=== PATIENT | male | born 1945 | race Caucasian/White ===

== ENCOUNTER → 2016-10-12 | Outpatient (CLI) | payer BC ==
[~2016-10-12] MED LIST: ASCO500T16 PO; ASPI81TA28 PO; CHOL1CAP57 PO; DOXA-10 PO; GARL400T4 PO; LOSA1TAB38 PO; LZL/125 PO; MCRK20 PO; MECL1TAB42 PO; MULTTAB58 PO; OMEG10007 PO
[2016-10-12 09:55] LABS: AST/SGOT 19 U/L (15-37); BLOOD UREA NITROGEN 22 mg/dl (7-18); BUN/CREATININE RATIO 16.8 (10-20); CARBON DIOXIDE 26 mmol/L (21-32); CHLORIDE 107 mmol/L (98-107); GLUCOSE 89 mg/dl (70-99); POTASSIUM 3.4 mmol/L (3.5-5.1); SODIUM 141 mmol/L (136-145)
[2016-10-12 10:05] LABS: ALB/GLOB RATIO 1.1 (0.9-2); ALKALINE PHOSPHATASE 77 U/L (45-117); ALT/SGPT 31 U/L (12-78)
== END | disposition home or self-care (01) ==
LOC: C.LAB1850 07:44
PROVIDERS: ATTEND Family Medicine
DX: N40.1 Benign prostatic hyperplasia with lower urinary tract symptoms (principal); R97.20 Elevated prostate specific antigen [PSA]; I10 Essential (primary) hypertension

== ENCOUNTER 2020-03-31 22:06 | Inpatient (IN) ==
--- NOTE | 2020-03-31 22:32 | Emergency Department Note ---
History of Present Illness General Chief complaint: Stroke/CVA Symptoms Stated complaint: STROKE LIKE SX Time Seen by Provider: 03/31/20 22:14 Source: patient Mode of arrival: EMS Limitations: no limitations History of Present Illness Provider complaint: CVA symptoms This is a 74-year-old male who has a history of dementia, CVA as well as intracranial hemorrhage. The patient tonight was last known well around 7:30 PM. The states that he complained that his left lateral head was hurting. She states that is the same place that he had had a previous intracranial hemorrhage. The patient then was speaking in an incomprehensible manner following this. She states that she wanted to see if it would get better but it did not therefore she brought him in for evaluation. The patient is unable to provide any information. The states that his baseline is that he has dementia. He normally speaks clearly and tell stories that do not make much sense and sometimes follows commands if he can hear and understand. Today he is not following any commands and does speak words with a slurred fashion but the words do not make any sense. Home Medications Medication Instructions Recorded Confirmed Type doxazosin [Cardura] 8 mg PO QAM 10/16/19 03/31/20 History indapamide 1.25 mg PO QPM 10/16/19 03/31/20 History losartan [Cozaar] 100 mg PO QAM 10/16/19 03/31/20 History potassium chloride [Klor-Con M20] 20 meq PO QPM 10/16/19 03/31/20 History potassium chloride [Klor-Con M20] 40 meq PO QAM 10/16/19 03/31/20 History donepezil 5 mg PO QPM 03/31/20 03/31/20 History finasteride 5 mg PO QAM 03/31/20 03/31/20 History Allergies Allergy/AdvReac Type Severity Reaction Status Date / Time No Known Allergies Allergy Verified 03/31/20 22:47 Past Med/Surg History Medical History (Updated 03/31/20 @ 23:56 by Virgilio Jacob DO) BPH (benign prostatic hyperplasia) Chronic back pain Hearing deficit bilateral Hypertension SAH (subarachnoid hemorrhage) Stroke Urinary tract infection Surgical History History of testicular surgery Hx of colonoscopy with polypectomy Social History Smoking Status: Former smoker Second Hand Exposure: No; Hx Alcohol Use: No Hx Substance Use: No Preferred Language: Yakut Communication Ability: Effective Web Programmer Required: No Beliefs That Will Affect Care: None Current Living Situation: Spouse Feels Safe at Home: Yes Review of Systems Unobtainable due to cognitive status Physical Exam Vital Signs Vital Signs - 24 hr 03/31/20 22:10 03/31/20 22:34 03/31/20 22:45 Temperature 37.0 C Temperature Source Oral Pulse Rate 64 75 74 Pulse Rate [Right Finger] Pulse Rate from SpO2 Sensor 65 73 Respiratory Rate 16 20 17 Respiratory Effort / Characteristics Non-Labored Spontaneous Respiratory Depth Normal Blood Pressure 197/85 H 198/101 H 164/126 H Blood Pressure [Right Arm] Blood Pressure Mean 122 123 131 Blood Pressure Mean [Right Arm] Pulse Oximetry 98 95 97 Oxygen Delivery Method Room Air Room Air Room Air Sepsis Recent Fever Within 48 Hours No Sepsis New/Unexplained Change in Mental Status No Sepsis Action Taken by Nursing No Action Required 03/31/20 23:00 03/31/20 23:01 03/31/20 23:31 Temperature Temperature Source Pulse Rate 83 Pulse Rate [Right Finger] 76 103 H Pulse Rate from SpO2 Sensor 81 Respiratory Rate 16 16 17 Respiratory Effort / Characteristics Respiratory Depth Blood Pressure 159/96 H Blood Pressure [Right Arm] 159/96 H 168/99 H Blood Pressure Mean 129 Blood Pressure Mean [Right Arm] 117 122 Pulse Oximetry 96 97 99 Oxygen Delivery Method Room Air Room Air Room Air Sepsis Recent Fever Within 48 Hours Sepsis New/Unexplained Change in Mental Status Sepsis Action Taken by Nursing 03/31/20 23:43 03/31/20 23:48 Temperature Temperature Source Pulse Rate Pulse Rate [Right Finger] 99 H 103 H Pulse Rate from SpO2 Sensor Respiratory Rate 19 17 Respiratory Effort / Characteristics Respiratory Depth Blood Pressure Blood Pressure [Right Arm] 187/105 H 169/113 H Blood Pressure Mean Blood Pressure Mean [Right Arm] 132 131 Pulse Oximetry 97 Oxygen Delivery Method Room Air Sepsis Recent Fever Within 48 Hours Sepsis New/Unexplained Change in Mental Status Sepsis Action Taken by Nursing CONSTITUTIONAL/VITAL SIGNS: Reviewed / noted above. GENERAL: Non-toxic in appearance. INTEGUMENTARY: Warm, dry, and [place]. HEAD: Normocephalic. EYES: without scleral icterus or trauma. ENT/OROPHARYNX: clear and moist. LYMPHADENOPATHY/NECK: Is supple without lymphadenopathy or meningismus. RESPIRATORY: Lungs clear and equal. CARDIOVASCULAR: Regular rate and rhythm. GI/ABDOMEN: Soft and nontender. No organomegaly or pulsatile mass. No rebound or guarding. Normal bowel sounds. EXTREMITIES: Warm and well perfused. BACK: No CVA tenderness. NEUROLOGICAL: The patient attempts to speak but speaks in a rapid soft manner and the words are slurred and did not make any sense. He does seem to have motor strength in his left upper extremity greater than right and bilateral lower extremity weakness. He follows no commands. He does open his eyes spontaneously. He does not appear to be in any distress PSYCHIATRIC: normal affect. MUSCULOSKELETAL: Normally developed with good muscle tone. TRIAGE NURSING DOCUMENTATION REVIEWED. Course Administered Medications Hydralazine HCl (Hydralazine Hcl 20 Mg/Ml Vial) 10 mg IV Q20M PRN PRN Reason: SBP above 185 or DBP above 110 Last Admin: 03/31/20 23:41 Dose: 10 mg Documented by: [id number] Admin: 03/31/20 22:41 Dose: 10 mg Documented by: [id number] Discontinued Medications Morphine Sulfate (Morphine Sulfate 4 Mg/Ml 1 Ml Carp\Vial) 4 mg IV NOW STA Stop: 03/31/20 23:37 Last Admin: 03/31/20 23:41 Dose: 4 mg Documented by: [id number] Critical Care Time Critical Care Time: Yes Total Critical Care Time: 60 I have personally spent 60 minutes of critical care time in the direct management of this patient. This includes bedside care, interpretation of diagnostic studies, and testing, discussion with consultants, patient, and family members, and other required patient management activities. This 60 minutes is in excess of all separately billable procedures. Medical Decision Making Differential Diagnosis Differential includes acute coronary syndrome, myocardial infarction, CVA, TIA, anemia, infection, pneumonia, UTI, pyelonephritis, poor nutrition, dehydration, electrolyte disturbance,hypoglycemia. Medical Records Attestation: I reviewed the patient's medical records. Home Medications Current Medication List: was personally reviewed by me Laboratory Data Attestation: I reviewed the patient's lab results. Result diagrams: 03/31/20 21:40 03/31/20 21:40 Lab Results 03/31/20 03/31/20 03/31/20 Range/Units 21:40 21:40 21:40 WBC 9.65 (4.8-10.8) K/uL RBC 4.67 L (4.7-6.1) M/uL Hgb 14.1 (14.0-18.0) g/dL Hct 41.9 L (42-52) % MCV 89.7 (80-100) fL MCH 30.2 (25-34) pg MCHC 33.7 (32-36) g/dL RDW Std Deviation 44.3 (36.4-46.3) fL RDW Coeff of Jason 13.6 (11.5-14.5) % Plt Count 256 (130-400) K/uL MPV 10.2 (7.4-10.4) fL Immature Gran % (Auto) 0.1 % Neut % (Auto) 68.6 % Lymph % (Auto) 19.3 % [place] % (Auto) 8.5 % Eos % (Auto) 3.0 % Baso % (Auto) 0.5 % Neut # (Auto) 6.62 H (1.4-6.5) K/uL Lymph # (Auto) 1.86 (1.2-3.4) K/uL [place] # (Auto) 0.82 H (0.11-0.59) K/uL Eos # (Auto) 0.29 (0-0.5) K/uL Baso # (Auto) 0.05 (0-0.2) K/uL Immature Gran # (Auto) 0.01 (0.00-0.02) K/uL PT 10.3 (9.0-12.0) Seconds INR 1.0 (0.9-1.1) APTT 24.2 (21.0-31.0) Seconds PTT Ratio 0.9 Sodium 142 (136-145) mmol/L Potassium 3.3 L (3.5-5.1) mmol/L Chloride 109 H (98-107) mmol/L Carbon Dioxide 27 (21-32) mmol/L Anion Gap 6.0 (3-11) BUN 33 H (7-18) mg/dl Creatinine 1.21 (0.6-1.4) mg/dl Est Cr Clr Drug Dosing 50.3 ml/min Est GFR ( Amer) 67.0 Est GFR (Non-Af Amer) 57.8 BUN/Creatinine Ratio 27.1 H (10-20) Glucose 99 (70-99) mg/dl Calcium 8.9 (8.5-10.1) mg/dl Magnesium 2.0 (1.8-2.4) mg/dl Total Bilirubin 0.4 (0.2-1) mg/dl AST 18 (15-37) U/L ALT 25 (12-78) U/L Alkaline Phosphatase 84 (45-117) U/L Troponin I < 0.015 (0-0.045) ng/ml Total Protein 7.1 (6.4-8.2) gm/dl Albumin 3.6 (3.4-5.0) gm/dl Globulin 3.5 (2.5-4.0) gm/dl Albumin/Globulin Ratio 1.0 (0.9-2) SARS-CoV-2 Ag (Rapid) (Negative) 03/31/20 Range/Units Unknown WBC (4.8-10.8) K/uL RBC (4.7-6.1) M/uL Hgb (14.0-18.0) g/dL Hct (42-52) % MCV (80-100) fL MCH (25-34) pg MCHC (32-36) g/dL RDW Std Deviation (36.4-46.3) fL RDW Coeff of Jason (11.5-14.5) % Plt Count (130-400) K/uL MPV (7.4-10.4) fL Immature Gran % (Auto) % Neut % (Auto) % Lymph % (Auto) % [place] % (Auto) % Eos % (Auto) % Baso % (Auto) % Neut # (Auto) (1.4-6.5) K/uL Lymph # (Auto) (1.2-3.4) K/uL [place] # (Auto) (0.11-0.59) K/uL Eos # (Auto) (0-0.5) K/uL Baso # (Auto) (0-0.2) K/uL Immature Gran # (Auto) (0.00-0.02) K/uL PT (9.0-12.0) Seconds INR (0.9-1.1) APTT (21.0-31.0) Seconds PTT Ratio Sodium (136-145) mmol/L Potassium (3.5-5.1) mmol/L Chloride (98-107) mmol/L Carbon Dioxide (21-32) mmol/L Anion Gap (3-11) BUN (7-18) mg/dl Creatinine (0.6-1.4) mg/dl Est Cr Clr Drug Dosing ml/min Est GFR ( Amer) Est GFR (Non-Af Amer) BUN/Creatinine Ratio (10-20) Glucose (70-99) mg/dl Calcium (8.5-10.1) mg/dl Magnesium (1.8-2.4) mg/dl Total Bilirubin (0.2-1) mg/dl AST (15-37) U/L ALT (12-78) U/L Alkaline Phosphatase (45-117) U/L Troponin I (0-0.045) ng/ml Total Protein (6.4-8.2) gm/dl Albumin (3.4-5.0) gm/dl Globulin (2.5-4.0) gm/dl Albumin/Globulin Ratio (0.9-2) SARS-CoV-2 Ag (Rapid) Negative (Negative) Imaging Data Radiologist's Impression: CT scan of the brain: Per statrad shows a parenchymal hemorrhage centered in the left temporoparietal lobe with surrounding edema. Small amount of surrounding subarachnoid hemorrhage as well. The parenchymal hemorrhage measures at least 7.3 cm. Local mass-effect as well as mass-effect on the left ventricle. Approximately 2 mm of left to right midline shift. Possibly early component of ventricular entrapment. ECG Data Attestation: I personally reviewed and interpreted this ECG as follows: Indication: + weakness Rate (beats per minute): 63 Rhythm: + sinus rhythm ECG ST segments: no ST elevation ECG Findings: no PVCs MDM Narrative Patient presents with a sudden onset of left-sided headache around 7:30 PM tonight followed by incomprehensible speech and not following commands or interacting appropriately, according to the . He does have history of intracranial bleed according to the on the left side. My exam as noted above. Vital signs are stable. The patient CBC was unremarkable. Chemistry panel was unremarkable. Twelve-lead EKG shows a sinus rhythm at a rate of 63. The patient's was told the results of the test. I did recommend transfer to tertiary care where neurosurgeon was available. The patient has [employer] insurance. I spoke with [facility]. I spoke with Dr. Garcia from neurosurgery. He recommended that the best thing that could be done was to manage his blood pressure. They do not have any ICU beds to accept the patient. I talked to Dr. Rodgers from [facility] neurosurgery. After reviewing the test results with him, he advised me they also do not have any neurosurgical beds. He also felt that the patient was not a surgical candidate based on the bleed as well as his age and baseline neurological status. He felt that the patient would require significant life support if neurosurgery was performed if the patient were to deteriorate clinically. I did talk to the patient's about this as well. The patient's did not feel the patient would want any life support such as ventilators or feeding tubes to keep him alive. In conclusion, the patient's condition ultimately does not require neuro surgery but rather medical management with blood pressure control. If his condition were to deteriorate which may happen between days 3 and 5, according to Dr. Rodgers, the patient will just be made comfort care and allowed to . The is in agreement with this plan. The patient does not deteriorate, the patient likely would not improve from his current condition. is aware of this. I did speak with Dr. Waller the on-call hospitalist. She is aware of the situation and will see the patient for further inpatient evaluation and care. Impression & Plan Intracranial hemorrhage Discharge Plan Visit Data Chief Complaint: Stroke/CVA Symptoms Stated Complaint: STROKE LIKE SX ED Provider: Virgilio Jacob Discharge Problem: Intracranial hemorrhage Patient Disposition: Being Evaluated by Hospitalist Forms Stand Alone Forms: My [facility], Virtual Emergency Department, Important Visit Information Prescriptions Prescriptions: No Action finasteride 5 mg tablet 5 mg PO QAM RF: 0 donepezil 5 mg tablet 5 mg PO QPM RF: 0 doxazosin [Cardura] 8 mg tablet 8 mg PO QAM RF: 0 potassium chloride [Klor-Con M20] 20 mEq tablet,ER particles/crystals 40 meq PO QAM RF: 0 potassium chloride [Klor-Con M20] 20 mEq tablet,ER particles/crystals 20 meq PO QPM RF: 0 indapamide 1.25 mg tablet 1.25 mg PO QPM RF: 0 losartan [Cozaar] 100 mg tablet 100 mg PO QAM RF: 0 Referrals Referrals: Marley Ball DO [Primary Care Provider] -
[2020-03-31 22:36] LABS: Basophils # (auto) 0.05 K/uL (0-0.2); Basophils % (auto) 0.5 %; Eosinophils # (auto) 0.29 K/uL (0-0.5); Hematocrit (blood only) 41.9 % (42-52); Hemoglobin 14.1 g/dL (14.0-18.0); Immature Granulocytes # (auto) 0.01 K/uL (0.00-0.02); Immature Granulocytes % (auto) 0.1 %; Lymphocytes # (auto) 1.86 K/uL (1.2-3.4); Lymphocytes % (auto) 19.3 %; Mean Corpuscular Hemoglobin 30.2 pg (25-34); Mean Corpuscular Hgb Conc 33.7 g/dL (32-36); Mean Corpuscular Volume 89.7 fL (80-100); Mean Platelet Volume 10.2 fL (7.4-10.4); Monocytes # (auto) 0.82 K/uL (0.11-0.59); Monocytes % (auto) 8.5 %; Neutrophils # (auto) 6.62 K/uL (1.4-6.5); Neutrophils % (auto) 68.6 %; Platelet Count 256 K/uL (130-400); RDW Coefficient of Variation 13.6 % (11.5-14.5); RDW Standard Deviation 44.3 fL (36.4-46.3); Red Blood Count 4.67 M/uL (4.7-6.1); White Blood Count 9.65 K/uL (4.8-10.8)
[2020-03-31] MEDS: hydrALAZINE HCL 20 MG/ML VIAL IV PRN ×2 (22:41→23:41)
[2020-03-31 22:52] LABS: Alanine Aminotransferase 25 U/L (12-78); Albumin Level 3.6 gm/dl (3.4-5.0); Aspartate Aminotransferase 18 U/L (15-37); BUN Creatinine Ratio 27.1 (10-20); Blood Urea Nitrogen 33 mg/dl (7-18); Calcium 8.9 mg/dl (8.5-10.1); Carbon Dioxide 27 mmol/L (21-32); Chloride 109 mmol/L (98-107); Creatinine Clr Calc Pharmacy 50.3 ml/min; Est GFR (Non-African American) 57.8; Glucose 99 mg/dl (70-99); Potassium 3.3 mmol/L (3.5-5.1); Sodium 142 mmol/L (136-145)
[2020-03-31 22:57] LABS: Alkaline Phosphatase 84 U/L (45-117); Bilirubin,Total 0.4 mg/dl (0.2-1); Globulin 3.5 gm/dl (2.5-4.0); Total Protein 7.1 gm/dl (6.4-8.2); Troponin I < 0.015 ng/ml (0-0.045)
[2020-03-31 23:01] LABS: Partial Thromboplastin Ratio 0.9; Partial Thromboplastin Time 24.2 Seconds (21.0-31.0); Prothrombin Time 10.3 Seconds (9.0-12.0)
[2020-03-31] MEDS ORDERED: MoRPHine SULFATE 4 MG/ML 1 ML CARP\\VIAL IV STA (23:36)
[2020-04-01] MEDS ORDERED: HYDROmorphone INJ 1 MG/ML SYRINGE IV STA (00:24)
[2020-04-01] MEDS ORDERED: LORazepam 1 MG/2 ML VIAL IV STA (00:24)
[2020-04-01] MEDS ORDERED: LORazepam 2 MG/4 ML VIAL ONE (00:27)
[2020-04-01] MEDS ORDERED: HYDROmorphone INJ 1 MG/ML SYRINGE ONE (00:29)
[2020-04-01] MEDS ORDERED: LABETALOL HCL IV 5 MG/ML 20ML IV STA ×2 (01:01→07:35)
[2020-04-01] MEDS ORDERED: LABETALOL HCL IV 5 MG/ML 20ML IV PRN (01:34)
[2020-04-01] MEDS ORDERED: DEXAMETHASONE SOD INJ 10 MG/ML VIAL IV ONE (01:46)
--- NOTE | 2020-04-01 01:48 | History & Physical Report ---
Date of Service April 01, 2020 Assessment & Plan (1) Intracranial hemorrhage: Caveat: History Limited by - AMS/CVA. is present at bedside and provides hx. 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 - parenchymal hemorrhage centered in the left temporoparietal lobe size of 7.3cm with surrounding edema; and small amounts surrounding subarachnoid hemorrhage; local mass-effect; mass effect on left lateral ventricle; approx 2mm of left to right midline shift. - ED provider contacted neurosurgeons at [facility] [place] and [facility] for transfer, there were no available ICU beds and [facility] neurosurgeon noted that this is an inoperable condition with only recommendations for BP management. - at bedside noted that Michael wouldn't want any resuscitation or intubation for cardiac arrest. She wanted to discuss with children prior to any official comfort care measures but agreed to keep Michael comfortable. - He was given Morphine 4mg IV for leg cramps/comfort, and was given Dilaudid 1mg IV and Ativan 1gm IV for comfort/agitation. - Spouse is aware of grave condition with high likelihood this isn't survivable and that could be any moment from herniation. - No official comfort care measures but endorses wanting to keep him as comfortable as possible. - Will aim to control BP to Systolic <140 to help negate further intracranial bleeding , as is only available management for current brain bleed. Will do this with Labetalol 10mg IV q2h and Hydralazine 4mg q2h but expect may need to increase frequency. - Since surrounding edema noted will treat with Dexamethasone 10mg IV. - Palliative consult placed. Suspect plan would be to have family discussion so children are included in decision making per spouse's wishes. - Dilaudid 1mg IV q4h; Ativan 1mg q4H for comfort. - Spouse wishes for Neuro consult and this was placed. - Follow CVA order set protocols such as neuro checks and elevation head of bed. Seizure precautions. - 1:1 as needed. - NPO - Defer for any speech or OT/PT consults at this time. FENGI: NSS @ 100ml/hr, NPO DVT ppx: Contraindication for chemical because of acute bleed; no current mechanical indicated with current grave illness. 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 This was also treated with BP management of Systolic <140. (3) AMS (altered mental status): as above (4) Acute confusion: as above (5) Dementia: noted to have rapidly declining cognitive loss, hold home donepizil. History of Present Illness Chief Complaint: Michael Patrick Primary Care Provider: Marley Ball DO Caveat: History Limited by - AMS/CVA. is present at bedside and provides hx. 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 notes that around 5:30pm tonight patient came out of bathroom and complained of a left sided headache. He then progressed to have mumbled speech and was acting more confused from baseline, wasn't following commands, unintelligable speech. is unaware of any head trauma. He does have a hx of a nonoperable subarachnoid hemorrhage treated at [facility] [place] in October 2019. reports his cognitive function has been declining since and that she has to help Michael with most ADLs. She reports that about one week ago coming to ED b ecause of increased agitation at home. In the ED here, he was found to have parenchymal hemorrhage centered in the left temporoparietal lobe size of 7.3cm with surrounding edema; and small amounts surrounding subarachnoid hemorrhage; local mass-effect; mass effect on left lateral ventricle; approx 2mm of left to right midline shift. ED provider contacted neurosurgeons at [facility] [place] and [facility] for transfer, there were no available ICU beds and [facility] neurosurgeon noted that this is an inoperable condition with only recommendations for BP management. at bedside noted that Michael wouldn't want any resuscitation or intubation for cardiac arrest. She wanted to discuss with children prior to any official comfort care measures but agreed to keep Michael comfortable. He was given Morphine 4mg IV for leg cramps that she noted gives him pain, although he wasn't able to endorse any intelligible speech noting pain. He was trying to get out of bed, not following commands, and was given Dilaudid 1mg IV (as noted he was still in pain s/p Morphine 4mg IV) and Ativan 1gm IV, both which made Michael more comfortable. He also has been getting Hydralazine IV for BP control. is requesting Neurology consult. She is aware of grave condition and most likely un-survivable illness. Allergies Allergy/AdvReac Type Severity Reaction Status Date / Time terazosin [From Hytrin] Allergy Unknown Unknown Verified 04/01/20 00:37 Home Medications Medication Instructions Recorded Confirmed Type doxazosin [Cardura] 8 mg PO QAM 10/16/19 03/31/20 History indapamide 1.25 mg PO QPM 10/16/19 03/31/20 History losartan [Cozaar] 100 mg PO QAM 10/16/19 03/31/20 History potassium chloride [Klor-Con M20] 20 meq PO QPM 10/16/19 03/31/20 History potassium chloride [Klor-Con M20] 40 meq PO QAM 10/16/19 03/31/20 History donepezil 5 mg PO QPM 03/31/20 03/31/20 History finasteride 5 mg PO QAM 03/31/20 03/31/20 History Past Med/Surg History Medical History (Updated 04/01/20 @ 12:10 by JULIAN Martinez) BPH (benign prostatic hyperplasia) Chronic back pain Hearing deficit bilateral Hypertension Palliative care encounter SAH (subarachnoid hemorrhage) Stroke Urinary tract infection Surgical History History of testicular surgery Hx of colonoscopy with polypectomy Social History Smoking Status: Unknown if ever smoked Second Hand Exposure: No; Hx Substance Use: No Preferred Language: Vietnamese Communication Ability: Unable Surgeon Partner Required: No Beliefs That Will Affect Care: None Current Living Situation: Spouse Feels Safe at Home: Declines to Answer Safety Concerns: Feels Safe At This Time Assistive Devices: None Review of Systems Review of Systems: Unobtainable due to cognitive status and Unobtainable due to reduced consciousness otherwise as noted in HPI. Physical Exam Constitutional: WD/WN, vitals as above + ill appearing, + altered mental status and comfortable Caveat: Limited by CVA/AMS Eyes: PERRL, conjunctivae normal, anicteric sclerae ENMT: Nose: no external nose abnormality Mouth: no lip abnormality Neck: trachea midline Respiratory: normal respiratory effort, lungs clear to auscultation Cardiovascular: Rate/Rhythm: regular rhythm and + tachycardic Gastrointestinal (Abdomen): Inspection/Auscultation: + visible herniation (umbilical) Percussion/Palpation: abdomen soft Musculoskeletal: Head/Neck/Chest: normocephalic and head atraumatic Skin: no rashes, warm and dry Neurologic: + confused Speech / Cognition: + abnormal speech does not respond to simtuli or open eyes; does not open eyes but mumbles and tried to get out of bed prior to sedation. Psychiatric: unable to assess Results & Data Results & Data ([facility]) Vital Signs (Past 12 Hours) Vital Signs Temp Pulse Pulse Resp BP BP Pulse Ox 04/01/20 01:31 163/85 H 04/01/20 01:10 153/88 H 04/01/20 01:03 115 H 13 176/91 H 96 04/01/20 00:47 108 H 20 139/91 94 04/01/20 00:20 162/90 H 03/31/20 23:51 106 H 17 181/90 H 97 03/31/20 23:48 103 H 17 169/113 H 97 03/31/20 23:43 99 H 19 187/105 H 03/31/20 23:31 103 H 17 168/99 H 99 03/31/20 23:01 76 16 159/96 H 97 03/31/20 23:00 83 16 159/96 H 96 03/31/20 22:45 74 17 164/126 H 97 03/31/20 22:34 75 20 198/101 H 95 03/31/20 22:10 37.0 C 64 16 197/85 H 98 Laboratory Results Laboratory Results - last 24 hr 03/31/20 03/31/20 03/31/20 21:40 21:40 21:40 WBC 9.65 RBC 4.67 L Hgb 14.1 Hct 41.9 L MCV 89.7 MCH 30.2 MCHC 33.7 RDW Std Deviation 44.3 RDW Coeff of Jason 13.6 Plt Count 256 MPV 10.2 Immature Gran % (Auto) 0.1 Neut % (Auto) 68.6 Lymph % (Auto) 19.3 Laurel % (Auto) 8.5 Eos % (Auto) 3.0 Baso % (Auto) 0.5 Neut # (Auto) 6.62 H Lymph # (Auto) 1.86 Laurel # (Auto) 0.82 H Eos # (Auto) 0.29 Baso # (Auto) 0.05 Immature Gran # (Auto) 0.01 PT 10.3 INR 1.0 APTT 24.2 PTT Ratio 0.9 Sodium 142 Potassium 3.3 L Chloride 109 H Carbon Dioxide 27 Anion Gap 6.0 BUN 33 H Creatinine 1.21 Est Cr Clr Drug Dosing 50.3 Est GFR ( Amer) 67.0 Est GFR (Non-Af Amer) 57.8 BUN/Creatinine Ratio 27.1 H Glucose 99 Calcium 8.9 Magnesium 2.0 Total Bilirubin 0.4 AST 18 ALT 25 Alkaline Phosphatase 84 Troponin I < 0.015 Total Protein 7.1 Albumin 3.6 Globulin 3.5 Albumin/Globulin Ratio 1.0 SARS-CoV-2 Ag (Rapid) 03/31/20 Unknown WBC RBC Hgb Hct MCV MCH MCHC RDW Std Deviation RDW Coeff of Jason Plt Count MPV Immature Gran % (Auto) Neut % (Auto) Lymph % (Auto) Laurel % (Auto) Eos % (Auto) Baso % (Auto) Neut # (Auto) Lymph # (Auto) Laurel # (Auto) Eos # (Auto) Baso # (Auto) Immature Gran # (Auto) PT INR APTT PTT Ratio Sodium Potassium Chloride Carbon Dioxide Anion Gap BUN Creatinine Est Cr Clr Drug Dosing Est GFR ( Amer) Est GFR (Non-Af Amer) BUN/Creatinine Ratio Glucose Calcium Magnesium Total Bilirubin AST ALT Alkaline Phosphatase Troponin I Total Protein Albumin Globulin Albumin/Globulin Ratio SARS-CoV-2 Ag (Rapid) Negative Diagnostic Findings CT Head w/o: parenchymal hemorrhage centered in the left temporoparietal lobe size of 7.3cm with surrounding edema; and small amounts surrounding subarachnoid hemorrhage; local mass-effect; mass effect on left lateral ventricle; approx 2mm of left to right midline shift. Medications Administered Hydralazine HCl (Hydralazine Hcl 20 Mg/Ml Vial) 10 mg IV Q20M PRN PRN Reason: SBP above 185 or DBP above 110 Last Admin: 03/31/20 23:41 Dose: 10 mg Documented by: [id number] Admin: 03/31/20 22:41 Dose: 10 mg Documented by: [id number] Code Status & VTE Plan Code Status DNR/DNI VTE Prophylaxis Plan VTE Prophylaxis will be ordered: No Reason for no VTE drug order: Contraindicated Reason for no VTE mechanical prophylaxis: Treatment not tolerated Supervising Physician Co-Signing Physician Notes Patient seen and examined, chart reviewed, case discussed with Dr. Mckoy and I agree with his assessment and plan Resident Activity Tracking Resident Involvement: Resident Care Provided Care Provided: Adult Hospital Medicine (1) Dementia Dementia behavioral disturbance: with behavioral disturbance Dementia type: unspecified type Qualified Code(s): F03.91 - Unspecified dementia with behavioral disturbance
[2020-04-01] MEDS ORDERED: hydrALAZINE HCL 20 MG/ML VIAL IV PRN ×2 (02:10→02:17)
[2020-04-01] MEDS ORDERED: SODIUM CHLORIDE 0.9% 1000ML 1,000 ML IV SCH (02:10)
[2020-04-01] MEDS ORDERED: HYDROmorphone INJ 1 MG/ML SYRINGE IV PRN (02:10)
[2020-04-01] MEDS ORDERED: PHARMACIST DISCHARGE MED REC CONSULT PRN (02:10)
[2020-04-01] MEDS: POTASSIUM CHLORIDE / WTR 10 MEQ/100 ML PLCT IV SCH ×2 (03:29→04:21)
--- NOTE | 2020-04-01 03:34 | Billing Data ---
Date of Service April 01, 2020 Coding Level of Care Code 65656 Initial Inpt Care Lvl 3
[2020-04-01 07:09] LABS: Basophils # (auto) 0.01 K/uL (0-0.2); Basophils % (auto) 0.1 %; Hematocrit (blood only) 42.6 % (42-52); Hemoglobin 14.9 g/dL (14.0-18.0); Immature Granulocytes # (auto) 0.04 K/uL (0.00-0.02); Immature Granulocytes % (auto) 0.3 %; Lymphocytes # (auto) 0.55 K/uL (1.2-3.4); Lymphocytes % (auto) 3.7 %; Mean Corpuscular Hemoglobin 31.1 pg (25-34); Mean Corpuscular Volume 88.9 fL (80-100); Mean Platelet Volume 9.2 fL (7.4-10.4); Monocytes # (auto) 0.12 K/uL (0.11-0.59); Monocytes % (auto) 0.8 %; Neutrophils # (auto) 14.19 K/uL (1.4-6.5); Neutrophils % (auto) 95.1 %; Platelet Count 259 K/uL (130-400); RDW Coefficient of Variation 13.5 % (11.5-14.5); RDW Standard Deviation 44.1 fL (36.4-46.3); Red Blood Count 4.79 M/uL (4.7-6.1); White Blood Count 14.91 K/uL (4.8-10.8)
--- NOTE | 2020-04-01 07:12 | CT Scan Report ---
CT SCAN OF THE BRAIN WITHOUT IV CONTRAST CLINICAL HISTORY: Strokelike symptoms. COMPARISON STUDY: CT of the brain dated 03/23/2020. TECHNIQUE: Unenhanced axial CT scan of the brain is performed from the vertex to the skull base. A do se lowering technique was utilized adhering to the principles of ALARA. CT DOSE: 614.27 mGy.cm FINDINGS: Brain parenchyma: There is a large hemorrhage centered in the left temporoparietal region. This is be st seen on image #18 and measures approximately 7.5 x 5 cm. There is significant surrounding edema wi th effacement of the overlying cortical sulci and the right lateral ventricle. There is 3 mm of left- to-right midline shift. There is subarachnoid extension along the left-sided cortical sulci. There is also likely extension into the left lateral ventricle. There is also likely trace subdural extension along the left convexity. There are age-related involutional changes noting mild subcortical and pe riventricular microangiopathic change. There is no evidence of acute territorial ischemia by CT crite sameer. Ventricles, sulci, cisterns: Prominent secondary to involutional change. See above. Intracranial vasculature: There is mild atherosclerotic calcification of the cavernous carotid arteri es. Calvarium: Unremarkable. Sinuses and mastoids: The visualized paranasal sinuses are clear. The mastoid air cells are well pneu matized. Orbits: The bony orbits are grossly intact. IMPRESSION: 1. There is a large multicompartmental intracranial hemorrhage centered in the left temporoparietal r egion as above. 2. There is effacement of the overlying cortical sulci and the left lateral ventricle, as well as min imal [id number] midline shift. ACT 112: Negative or not required by law. Electronically signed by: Joseph Albrecht M.D. 04/01/2020 7:11 AM
[2020-04-01] MEDS: LORazepam 1 MG/2 ML VIAL IV PRN ×3 (07:38→17:37)
[2020-04-01 07:42] LABS: BUN Creatinine Ratio 20.5 (10-20); Calcium 8.9 mg/dl (8.5-10.1); Creatinine Clr Calc Pharmacy 48.5 ml/min; Est GFR (African American) 64.4; Est GFR (Non-African American) 55.6; Potassium 3.6 mmol/L (3.5-5.1)
--- NOTE | 2020-04-01 08:06 | Hospitalist Progress Note ---
Date of Service April 01, 2020 Assessment & Plan (1) Intracranial hemorrhage: Patient is a 74 year old male with PMHx subarachnoid hemorrhage, dementia, BPH, HTN that presented to [facility] ED for AMS and stroke like symptoms, found ot have a hemorrhagic stroke of his left temporoparietal lobe 7.3cm x 4.9cm with surrounding edema. COMFORT CARE MEASURES ONLY -Discussion with patients Arianne and their 3 children over the phone today regarding patients poor prognosis. -Family agreeable to comfort measures only at this time and wish to withdraw care and only keep him comfortable. -Will DC all unnecessary tests and treatments. -Palliative Consulted -Tylenol 650mg q6h PRN -Morphine 2mg q2h PRN pain/discomfort -Ativan 1mg q4h PRN agitation -Zofran 4mg q4h PRN nausea -Chlorpromazine 25mg q6h PRN hiccups -Transfer to single room for end of life Dispo: Downgrade Med/Surg Comfort care FEN: DC IVF, food per comfort DVT: Deferred, comfort Code: DNR/DNI Comfort Measures (2) SAH (subarachnoid hemorrhage): (3) AMS (altered mental status): (4) Comfort measures only status: Admission and Anticipated Discharge Date Admission Date: April 01, 2020 Supervising Physician Co-Signing Physician Notes Resident Physician Supervision Note: I independently interviewed and examined the patient and verified the suarez history and physical, reviewed labs and image studies, discussed the case with the resident Dr. Alonso and agree with the findings and care plan. Subjective Patient minimally responsive this AM. Had recently received Ativan and sleeping and snoring loudly. Prognosis poor. Called patient's and 3 children in regards to his situation and prognosis. Family agrees that their only want is for the patient to be comfortable. Arianne and his 3 children wanting to at this time transition patient to comfort measures only. Appreciative of care given. Review of Systems Review of Systems: Unobtainable due to reduced consciousness Physical Exam Constitutional: + altered mental status Respiratory: normal respiratory effort; no respiratory distress Auscultation: lungs clear to auscultation bilaterally Cardiovascular: Rate/Rhythm: + tachycardic Results & Data Results & Data ([facility]) Vital Signs (Past 12 Hours) Vital Signs Temp Pulse Pulse Resp BP BP Pulse Ox 04/01/20 07:00 105 H 04/01/20 06:22 108 H 164/92 H 04/01/20 05:32 98 H 174/93 H 04/01/20 02:48 36.5 C 100 H 20 158/88 H 97 04/01/20 02:10 98 H 19 188/90 H 96 04/01/20 01:31 163/85 H 04/01/20 01:10 153/88 H 04/01/20 01:03 115 H 13 176/91 H 96 04/01/20 00:47 108 H 20 139/91 94 04/01/20 00:20 162/90 H 03/31/20 23:51 106 H 17 181/90 H 97 03/31/20 23:48 103 H 17 169/113 H 97 03/31/20 23:43 99 H 19 187/105 H 03/31/20 23:31 103 H 17 168/99 H 99 03/31/20 23:01 76 16 159/96 H 97 03/31/20 23:00 83 16 159/96 H 96 03/31/20 22:45 74 17 164/126 H 97 03/31/20 22:34 75 20 198/101 H 95 03/31/20 22:10 37.0 C 64 16 197/85 H 98 Resident Activity Tracking Resident Involvement: Resident Care Provided Care Provided: Adult Hospital Medicine
[2020-04-01] MEDS ORDERED: ONDANSETRON 4 MG OD TAB SL PRN (10:29)
[2020-04-01] MEDS ORDERED: chlorproMAZINE HCL 25 MG TAB PO PRN (10:29)
[2020-04-01] MEDS ORDERED: MoRPHine SULFATE 2 MG/ML CARP IV PRN (10:29)
[2020-04-01] MEDS ORDERED: LORazepam 0.5 MG/1 ML VIAL IV PRN (10:29)
[2020-04-01] MEDS ORDERED: LORazepam 0.5 MG TAB PO PRN (10:29)
[2020-04-01] MEDS ORDERED: ATROPINE SULFATE 1% OP SOLN 2 ML BTL SL PRN (10:29)
[2020-04-01] MEDS ORDERED: ONDANSETRON INJ 2 MG/ML 2 ML VIAL IV PRN (10:29)
[2020-04-01] MEDS ORDERED: ACETAMINOPHEN 325 MG TAB PO PRN (10:29)
--- NOTE | 2020-04-01 10:43 | Neurology Consultation ---
Date of Consultation April 01, 2020 Assessment & Plan (1) Intracranial hemorrhage: (2) Dementia: This patient has a large lobar type hemorrhage within the left temporoparietal region with associated subarachnoid hemorrhage and extension into the left lateral ventricle. There is associated cytotoxic edema and a mild degree of left to right midline shift. He has had nontraumatic cerebral hemorrhage in the past and has an associated progressive dementia. He may have cerebral amyloid angiopathy although his recent brain MRIs were not highly suggestive of this diagnosis. Other types of dementia including Alzheimer's disease and frontotemporal dementia have been considered in this patient previously. Please see Dr. Tang's previous evaluation for further details. This patient's prognosis is very poor. Although admission to a tertiary center with neuro critical care and neurosurgical services would be preferred, aggressive treatment has been declined and not recommended by neurosurgery at both [facility] and [facility]. Patient is DNR/DNI. Comfor t measures have been recommended and are appropriate. No further immediate recommendations. Patient's care has been changed to comfort measures only for review of hospitalist progress note this morning. 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 He has exhibited a reduced level of consciousness as well. A CT of the head did reveal a large, 7.5 x 5 cm, multicompartmental intracranial hemorrhage centered in the left temporoparietal region with associated edema and effacement of the overlying cortical sulci and right lateral ventricle. There is 3 mm of left to right midline shift. There is a component of subarachnoid hemorrhage as well as extension into the left lateral ventricle. These findings were observed by the interpreting radiologist. I reviewed the images and agree. The emergency department physician had discussed his case with neurosurgery from both [facility] and [facility]. However, no neuro ICU beds were available at either institution. Furthermore, surgical intervention was not recommended based on bleeding characteristics, patient's age, and underlying neurological status (i.e. 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 The case was discussed with patient's in the emergency department as well. Patient's status is DNR/DNI. He was subsequently admitted to [facility] for supportive medical care including control of blood pressure and comfort measures. The patient's spouse is aware of a high likelihood of which may occur over the next few days due to the severity of his intracranial hemorrhage. Per nursing staff, patient has been agitated and attempting to climb out of bed and remove his Salcedo catheter. He was given lorazepam earlier this morning to address his agitation. He was sedated at the time of my assessment of him this morning. I do see that this patient was evaluated by Dr. Tang this past October and for a follow-up visit in December for dementia and nontraumatic subarachnoid hemorrhage. I did review her clinic notes which indicated progressive cognitive impairment beginning earlier this year with some concern for cerebral amyloid angiopathy, or possible angiitis. Given his history of nontraumatic subarachnoid hemorrhage. Alzheimer's disease and frontotemporal dementia were also considered in the differential. A brain MRI completed this past December had revealed hemosiderin from a prior subarachnoid hemorrhage within the left temporal occipital area as well as changes consistent with chronic cerebrovascular disease. There is generalized atrophy as well. These findings were identified by interpreting radiologist. I reviewed the images and agree. Allergies Allergy/AdvReac Type Severity Reaction Status Date / Time terazosin [From Hytrin] Allergy Unknown Unknown Verified 04/01/20 00:37 Home Medications Medication Instructions Recorded Confirmed Type doxazosin [Cardura] 8 mg PO QAM 10/16/19 03/31/20 History indapamide 1.25 mg PO QPM 10/16/19 03/31/20 History losartan [Cozaar] 100 mg PO QAM 10/16/19 03/31/20 History potassium chloride [Klor-Con M20] 20 meq PO QPM 10/16/19 03/31/20 History potassium chloride [Klor-Con M20] 40 meq PO QAM 10/16/19 03/31/20 History donepezil 5 mg PO QPM 03/31/20 03/31/20 History finasteride 5 mg PO QAM 03/31/20 03/31/20 History Patient History Medical History (Updated 04/01/20 @ 10:40 by Phani Alonso DO) BPH (benign prostatic hyperplasia) Chronic back pain Hearing deficit bilateral Hypertension SAH (subarachnoid hemorrhage) Stroke Urinary tract infection Surgical History History of testicular surgery Hx of colonoscopy with polypectomy Social History Smoking Status: Unknown if ever smoked Second Hand Exposure: No; Hx Substance Use: No Preferred Language: Polish Communication Ability: Effective 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 He is unresponsive to voice, tactile, or noxious stimulation. Testing of higher cognitive/integrative functions such as orientation, memory, concentration, speech, and fund of knowledge cannot be evaluated. Likewise, cranial nerve evaluation is limited. Pupils are equal, round, and minimally reactive to light. There is no ophthalmoplegia or gaze preference. Corneal reflexes intact. Oculocephalic reflex is intact. Sensory examination cannot be completed. Deep tendon reflexes are of modestly increased throughout, a bit more so for the right arm and leg. Plantar responses are equivocal bilaterally. Testing of coordination could not be completed. A funduscopic examination could not be completed due to poor patient cooperation. Carotid pulses intact bilaterally, no bruits to auscultation. Gait and station cannot be tested. Muscle strength cannot be tested. Muscle tone increased, with increased flexor tone for the right upper limb and modestly increased extensor tone for the right lower limb. No atrophy. No tremors or dyskinesias. Does exhibit occasional semipurposeful movements of the hands, grabbing at bed sheets. Results & Data ([facility]) Vital Signs (Past 12 Hours) Vital Signs Temp Pulse Pulse Resp BP BP Pulse Ox 04/01/20 08:08 36.8 C 104 H 17 152/105 H 97 04/01/20 08:00 102 H 131/73 04/01/20 07:00 105 H 04/01/20 06:22 108 H 164/92 H 04/01/20 05:32 98 H 174/93 H 04/01/20 02:48 36.5 C 100 H 20 158/88 H 97 04/01/20 02:10 98 H 19 188/90 H 96 04/01/20 01:31 163/85 H 04/01/20 01:10 153/88 H 04/01/20 01:03 115 H 13 176/91 H 96 04/01/20 00:47 108 H 20 139/91 94 04/01/20 00:20 162/90 H 03/31/20 23:51 106 H 17 181/90 H 97 03/31/20 23:48 103 H 17 169/113 H 97 03/31/20 23:43 99 H 19 187/105 H 03/31/20 23:31 103 H 17 168/99 H 99 03/31/20 23:01 76 16 159/96 H 97 03/31/20 23:00 83 16 159/96 H 96 03/31/20 22:45 74 17 164/126 H 97 03/31/20 22:34 75 20 198/101 H 95 03/31/20 22:10 37.0 C 64 16 197/85 H 98 Laboratory Results WBC 14.91, hemoglobin 14.9, hematocrit 42.6, platelet count 259, sodium 140, potassium 3.6, BUN 26, creatinine 1.25, glucose 146, calcium 8.9, magnesium 2.0, AST 18, ALT 25 Patient did have a lumbar puncture completed on November 08, 2019. CSF results were reviewed. CSF clear, pale yellow, no xanthochromia, WBC 2, RBC 367, glucose 63, protein 149.9, VDRL nonreactive, CSF meningoencephalitis panel negative. CSF Gram stain no organisms, culture no growth, CSF cytology, no malignant cells. Diagnostic Findings A CT angiogram of the head completed this past October was negative for stenosis, occlusion, or aneurysm. A CTA of the neck at that time was unremarkable. A brain MRI completed January 01, 2020 was negative for acute process. Hemoside rin from patient's previous subarachnoid hemorrhage of the left temporal occipital distribution was appreciated. Age-related atrophy and chronic microvascular ischemic disease observed. These findings were appreciated by the interpreting radiologist. I reviewed the images and agree. Coding Level of Care Code 82874 Initial Inpt Care Lvl 3 Diagnoses Intracranial hemorrhage I62.9 Dementia F03.91 Dementia behavioral disturbance: with behavioral disturbance Dementia type: unspecified type (1) Dementia Dementia behavioral disturbance: with behavioral disturbance Dementia type: unspecified type Qualified Code(s): F03.91 - Unspecified dementia with behavioral disturbance
--- NOTE | 2020-04-01 12:14 | Palliative Care Consultation ---
Date of Consultation April 01, 2020 Assessment & Plan (1) Palliative care encounter: This unfortunate gentleman suffered a large lobar type hemorrhage within the left temporoparietal region with associated subarachnoid hemorrhage and extension into the left lateral ventricle. Neurology was consulted and transfer to a tertiary care center would not be recommended. Ultimately, he has a very poor prognosis. Palliative care was consulted to discuss goals of care. The patient was transitioned to comfort measures only after lengthy discussion with pt , Arianne [phone]. Morphine IV, Atropine gtts, and Ativan were ordered. I cleared with Dr. Hogue that Arianne could visit once patient was transferred to a private room. Talked with and advised that we would need her to visit sooner rather than later due to the snowstorm, we would not be able to allow her to stay overnight. Life expectancy hours to a few days. Thank you for allowing us to be involved with this gentleman.We will continue to follow as he progresses through this life transition. (2) Dementia: Dementia behavioral disturbance: with behavioral disturbance Dementia type: unspecified type Qualified Code(s): F03.91 - Unspecified dementia with behavioral disturbance (3) Dementia: (4) SAH (subarachnoid hemorrhage): (5) AMS (altered mental status): History of Present Illness Reason for Consultation: Goals of care Requesting Physician: Dr. Barrera Attending Physician: Ibeth Barrera MD History of Present Illness This unfortunate gentleman suffered a large lobar type hemorrhage within the left temporoparietal region with associated subarachnoid hemorrhage and extension into the left lateral ventricle. Neurology was consulted and transfer to a tertiary care center would not be recommended. Ultimately, he has a very poor prognosis. Palliative care was consulted to discuss goals of care. Please see A/P for further details. Thank you for involving palliative care with this gentleman. Allergies Allergy/AdvReac Type Severity Reaction Status Date / Time terazosin [From Hytrin] Allergy Unknown Unknown Verified 04/01/20 00:37 Home Medications Medication Instructions Recorded Confirmed Type doxazosin [Cardura] 8 mg PO QAM 10/16/19 03/31/20 History indapamide 1.25 mg PO QPM 10/16/19 03/31/20 History losartan [Cozaar] 100 mg PO QAM 10/16/19 03/31/20 History potassium chloride [Klor-Con M20] 20 meq PO QPM 10/16/19 03/31/20 History potassium chloride [Klor-Con M20] 40 meq PO QAM 10/16/19 03/31/20 History donepezil 5 mg PO QPM 03/31/20 03/31/20 History finasteride 5 mg PO QAM 03/31/20 03/31/20 History Patient History Medical History (Updated 04/01/20 @ 12:10 by JULIAN Martinez) BPH (benign prostatic hyperplasia) Chronic back pain Hearing deficit bilateral Hypertension Palliative care encounter SAH (subarachnoid hemorrhage) Stroke Urinary tract infection Surgical History History of testicular surgery Hx of colonoscopy with polypectomy Social History Smoking Status: Unknown if ever smoked Second Hand Exposure: No; Hx Substance Use: No Preferred Language: [place] Communication Ability: Unable Belt Builder Required: No Beliefs That Will Affect Care: None Current Living Situation: Spouse Feels Safe at Home: Declines to Answer Safety Concerns: Feels Safe At This Time Assistive Devices: None Results & Data ([facility]) Vital Signs (Past 12 Hours) Vital Signs Temp Pulse Pulse Resp BP BP Pulse Ox 04/01/20 08:08 36.8 C 104 H 17 152/105 H 97 04/01/20 08:00 102 H 131/73 04/01/20 07:00 105 H 04/01/20 06:22 108 H 164/92 H 04/01/20 05:32 98 H 174/93 H 04/01/20 02:48 36.5 C 100 H 20 158/88 H 97 04/01/20 02:10 98 H 19 188/90 H 96 04/01/20 01:31 163/85 H 04/01/20 01:10 153/88 H 04/01/20 01:03 115 H 13 176/91 H 96 04/01/20 00:47 108 H 20 139/91 94 04/01/20 00:20 162/90 H PG Care Time/CCT Total # of Minutes Spent Total Time Spent with Patient: Total time spent is greater than 50% in coordination of care (as documented) at patient's floor/unit and/or counseling patient: 70 Coding Level of Care Code 32617 Inpt Consult Level 3 Diagnoses Palliative care encounter Z51.5 Dementia F03.91 Dementia behavioral disturbance: with behavioral disturbance Dementia type: unspecified type Dementia F03.90 SAH (subarachnoid hemorrhage) I60.9 AMS (altered mental status) R41.82 Time Spent (min) 70 Time Spent Midlevel Total time spent 70 minutes with > 50% of that time spent assessing the patient, discussing goals of care, symptom management and collaborating with IDT
[2020-04-01] MEDS: MoRPHine SULFATE 2 MG/ML CARP IV PRN (18:26)
--- NOTE | 2020-04-01 22:24 | Electrocardiogram Report ---
Test Reason : Blood Pressure : / mmHG Vent. Rate : 063 BPM Atrial Rate : 063 BPM P-R Int : 194 ms QRS Dur : 114 ms QT Int : 406 ms P-R-T Axes : 055 -40 019 degrees QTc Int : 415 ms Normal sinus rhythm Left axis deviation Incomplete right bundle branch block Abnormal ECG When compared with ECG of 23-MAR-2020 21:08, Premature ventricular complexes are no longer Present Confirmed by Jordan Becerra ([id number]) on 04/01/2020 10:24:09 PM Referred By: REFERRED SELF Confirmed By:Jordan Becerra
[2020-04-02] MEDS: LORazepam 1 MG/2 ML VIAL IV PRN ×2 (01:05→05:32)
--- NOTE | 2020-04-02 07:01 | Hospitalist Progress Note ---
Date of Service April 02, 2020 Assessment & Plan (1) Intracranial hemorrhage: Patient is a 74 year old male with PMHx subarachnoid hemorrhage, dementia, BPH, HTN that presented to [facility] ED for AMS and stroke like symptoms, found ot have a hemorrhagic stroke of his left temporoparietal lobe 7.3cm x 4.9cm with surrounding edema. COMFORT CARE MEASURES ONLY -Discussion with patients Arianne and their 3 children over the phone today regarding patients poor prognosis. -Family agreeable to comfort measures only at this time and wish to withdraw care and only keep him comfortable. -Palliative Consulted -Tylenol 650mg q6h PRN -Morphine 2mg q1h PRN pain/discomfort -Ativan 1mg q4h PRN agitation -Zofran 4mg q4h PRN nausea -Chlorpromazine 25mg q6h PRN hiccups -Discussed with in regards to outpatient end of life care at [facility] assisted [facility]. -Will hold off on any transfers at this time, patients Arianne still deciding what she would want next, currently only wants patient to be comfortable. -Case management aware. Dispo: Med/Surg Comfort care FEN: DC IVF, food per comfort DVT: Deferred, comfort Code: DNR/DNI Comfort Measures (2) SAH (subarachnoid hemorrhage): (3) AMS (altered mental status): (4) Comfort measures only status: Admission and Anticipated Discharge Date Admission Date: April 01, 2020 Supervising Physician Co-Signing Physician Notes Resident Physician Supervision Note: I independently interviewed and examined the patient and verified the suarez history and physical, reviewed labs and image studies, discussed the case with the resident Dr. Alonso and agree with the findings and care plan. Subjective Patient evaluated at the bedside. Resting comfortable, snoring. Discussed with in regards to outpatient hospice. She notes that they live at [facility] and that their assisted living may be able to take him for his end of life care should the want that. No plans at this time to move the patient. Review of Systems Review of Systems: Unobtainable due to reduced consciousness Physical Exam Respiratory: normal respiratory effort; no respiratory distress Cardiovascular: Rate/Rhythm: regular rate and regular rhythm Gastrointestinal (Abdomen): Inspection/Auscultation: normal bowel sounds Percussion/Palpation: abdomen soft Neurologic: + obtunded Resident Activity Tracking Resident Involvement: Resident Care Provided Care Provided: Adult Hospital Medicine
[2020-04-02] MEDS: MoRPHine SULFATE 2 MG/ML CARP IV PRN (17:56)
--- NOTE | 2020-04-03 07:07 | Hospitalist Progress Note ---
Date of Service April 03, 2020 Assessment & Plan (1) Intracranial hemorrhage: Patient is a 74 year old male with PMHx subarachnoid hemorrhage, dementia, BPH, HTN that presented to [facility] ED for AMS and stroke like symptoms, found ot have a hemorrhagic stroke of his left temporoparietal lobe 7.3cm x 4.9cm with surrounding edema. COMFORT CARE MEASURES ONLY -Discussion with patients Trav Acuña and their 3 children over the phone today regarding patients poor prognosis. -Family agreeable to comfort measures only at this time and wish to withdraw care and only keep him comfortable. -Palliative Consulted -Tylenol 650mg q6h PRN -Morphine 2mg q1h PRN pain/discomfort -Ativan 1mg q4h PRN agitation -Zofran 4mg q4h PRN nausea -Chlorpromazine 25mg q6h PRN hiccups -Palliative Medicine adding on scheduled Roxanol for further pain alleviation. -Discussed with in regards to outpatient end of life care at [facility]. -Will hold off on any transfers at this time, patients Arianne still deciding what she would want next, currently only wants patient to be comfortable. -Case management aware. Dispo: Med/Surg Comfort care FEN: DC IVF, food per comfort DVT: Deferred, comfort Code: DNR/DNI Comfort Measures (2) SAH (subarachnoid hemorrhage): (3) AMS (altered mental status): (4) Comfort measures only status: Admission and Anticipated Discharge Date Admission Date: April 01, 2020 Supervising Physician Co-Signing Physician Notes Resident Physician Supervision Note: I independently interviewed and examined the patient and verified the suarez history and physical, reviewed labs and image studies, discussed the case with the resident Dr. Alonso and agree with the findings and care plan. Subjective Patient evaluated at the bedside. Minimally responsive. Snoring, occasional gasps. Review of Systems Review of Systems: Unobtainable due to cognitive status Physical Exam Constitutional: + altered mental status Respiratory: normal respiratory effort; no respiratory distress Auscultation: lungs clear to auscultation bilaterally Cardiovascular: Rate/Rhythm: regular rate, regular rhythm and + tachycardic Gastrointestinal (Abdomen): Inspection/Auscultation: normal bowel sounds Percussion/Palpation: abdomen soft Neurologic: + obtunded Resident Activity Tracking Resident Involvement: Resident Care Provided Care Provided: Adult [facility] Medicine
--- NOTE | 2020-04-03 12:07 | Palliative Care Progress Note ---
Date of Service April 03, 2020 Assessment & Plan (1) Palliative care encounter: I spoke with his and updated her. She is waiting for her children to arrive from out of town and will be in to see Michael later today. Visitation has been approved given, end of life care. She has strong kaylah, good spiritual support and good family and friend support. She is doing ok and reports that she has been grieving for some time now. She reiterates that her biggest concern is his comfort. She has talked with the staff at the [facility] and would consider return to the [facility] with hospice care if he remains stable. Will continue to monitor. (2) Pain: after SAH, due to moaning with care and her concerns about him having unrecognized pain, will start routine roxanol for baseline pain control. Continue IV morphine for breakthrough pain. Admission and Anticipated Discharge Date Admission Date: April 01, 2020 Subjective Resting but grimaces at times. Moans with repositioning and care. His has been concerned that he is having pain but is not able to express it. He had been having severe pain prior to admission. Review of Systems Review of Systems: Unobtainable due to cognitive status [place] Symptom Assessment Scale PainAD 1/3 Dyspnea by RDOS 0/3 Palliative Performance Scale 10% Physical Exam Constitutional: no acute distress Respiratory: normal respiratory effort; no labored breathing No apnea Cardiovascular: Extremities: no edema Skin: No mottling Neurologic: + obtunded PG Care Time/CCT Total # of Minutes Spent Total Time Spent with Patient: Total time spent is greater than 50% in coordination of care (as documented) at patient's floor/unit and/or counseling patient: Total time spent 30 minutes with more than 50% of time spent on discussing symptom management, plan of care and family support. Coding Level of Care Code 91264 Subseq Hosp Care Lvl 2 Diagnoses Palliative care encounter Z51.5 Pain R52
[2020-04-03] MEDS: MoRPHine SULFATE 5 MG/0.25 ML UDP PO SCH ×3 (13:44→20:44)
[2020-04-03] MEDS: LORazepam 1 MG/2 ML VIAL IV PRN (16:22)
[2020-04-03] MEDS: ATROPINE SULFATE 1% OP SOLN 5 ML BTL SL PRN ×3 (18:03→20:44)
[2020-04-03] MEDS: MoRPHine SULFATE 2 MG/ML CARP IV PRN (18:31)
[2020-04-04] MEDS: ATROPINE SULFATE 1% OP SOLN 5 ML BTL SL PRN ×6 (00:18→17:47)
[2020-04-04] MEDS: MoRPHine SULFATE 5 MG/0.25 ML UDP PO SCH ×3 (00:18→08:00)
[2020-04-04] MEDS: MoRPHine SULFATE 2 MG/ML CARP IV PRN ×2 (04:49→07:36)
[2020-04-04] MEDS: SCOPOLAMINE 1 MG TDSY TD SCH (05:51)
--- NOTE | 2020-04-04 06:53 | Hospitalist Progress Note ---
Date of Service April 04, 2020 Assessment & Plan (1) Intracranial hemorrhage: Patient is a 74 year old male with PMHx subarachnoid hemorrhage, dementia, BPH, HTN that presented to [facility] ED for AMS and stroke like symptoms, found ot have a hemorrhagic stroke of his left temporoparietal lobe 7.3cm x 4.9cm with surrounding edema. COMFORT CARE MEASURES ONLY -Discussion with patients Arianne and their 3 children over the phone today regarding patients poor prognosis. -Family agreeable to comfort measures only at this time and wish to withdraw care and only keep him comfortable. -Palliative Consulted -Case management aware. -Overnight patient with worsening secretions and respiratory distress -Contacted and notified patients of worsening pain, she is agreeable to increasing pain control regiment to make him comfortable. -Will start morphine gtt this AM -Add on glycopyrrolate for secretions Dispo: Med/Surg Comfort care FEN: DC IVF, food per comfort DVT: Deferred, comfort Code: DNR/DNI Comfort Measures (2) SAH (subarachnoid hemorrhage): (3) AMS (altered mental status): (4) Comfort measures only status: Admission and Anticipated Discharge Date Admission Date: April 01, 2020 Supervising Physician Co-Signing Physician Notes Resident Physician Supervision Note: I independently interviewed and examined the patient and verified the suarez history and physical, reviewed labs and image studies, discussed the case with the resident Dr. Alonso and agree with the findings and care plan. Subjective Patient evaluated at the bedside. Appearing more restless this AM with agonal gasps. Concern for worsening pain on current regiment. Also audible secretions, overnight nursing had asked respiratory therapy to suction patient to provide further relief. Review of Systems Review of Systems: Unobtainable due to cognitive status Physical Exam Respiratory: + respiratory distress and + labored breathing Cardiovascular: Rate/Rhythm: + tachycardic Resident Activity Tracking Resident Involvement: Resident Care Provided Care Provided: Adult Hospital Medicine
[2020-04-04] MEDS ORDERED: MoRPHine SULF/NSS 250 MG/250 ML BTL IV SCH (08:30)
[2020-04-04] MEDS ORDERED: GLYCOPYRROLATE 0.2 MG/ML VIAL IV PRN (08:30)
[2020-04-04] MEDS: CHECK SCOPOLAMINE PATCH PLACEMENT SCH (16:00)
[2020-04-05] MEDS: CHECK SCOPOLAMINE PATCH PLACEMENT SCH ×3 (00:17→16:00)
--- NOTE | 2020-04-05 07:29 | Hospitalist Progress Note ---
Date of Service April 05, 2020 Assessment & Plan (1) Intracranial hemorrhage: Patient is a 74 year old male with PMHx subarachnoid hemorrhage, dementia, BPH, HTN that presented to [facility] ED for AMS and stroke like symptoms, found ot have a hemorrhagic stroke of his left temporoparietal lobe 7.3cm x 4.9cm with surrounding edema. COMFORT CARE MEASURES ONLY -Discussion with patients Arianne and their 3 children over the phone today regarding patients poor prognosis. -Family agreeable to comfort measures only at this time and wish to withdraw care and only keep him comfortable. -Palliative Consulted -Case management aware. -Contacted and notified patients of worsening pain, she is agreeable to increasing pain control regiment to make him comfortable. 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 This was also treated with BP management of Systolic <140. (3) AMS (altered mental status): (4) Comfort measures only status: Admission and Anticipated Discharge Date Admission Date: April 01, 2020 Supervising Physician Co-Signing Physician Notes Resident Physician Supervision Note: I independently interviewed and examined the patient and verified the suarez history and physical, reviewed labs and image studies, discussed the case with the resident Dr. Alonso and agree with the findings and care plan. Subjective Patient evaluated at bedside. Resting comfortably. No agonal breathing. Review of Systems Review of Systems: Unobtainable due to reduced consciousness Physical Exam Respiratory: no respiratory distress Resident Activity Tracking Resident Involvement: Resident Care Provided Care Provided: Adult Hospital Medicine
[2020-04-05] MEDS: ATROPINE SULFATE 1% OP SOLN 5 ML BTL SL PRN ×2 (08:44→18:01)
[2020-04-05] MEDS ORDERED: ACETAMINOPHEN 650 MG SUPP ONE (17:49)
[2020-04-05] MEDS: ACETAMINOPHEN 650 MG SUPP PR STA ×2 (18:00→18:06)
[2020-04-06] MEDS: CHECK SCOPOLAMINE PATCH PLACEMENT SCH ×4 (02:05→23:58)
[2020-04-06] MEDS: ATROPINE SULFATE 1% OP SOLN 5 ML BTL SL PRN ×3 (08:30→21:36)
[2020-04-06] MEDS ORDERED: oxyCODONE HCL SOLN 5 MG/5 ML UDC PO PRN ×2 (12:04→12:20)
[2020-04-06] MEDS ORDERED: oxyCODONE HCL SOLN 5 MG/5 ML UDC PO SCH ×2 (12:15→12:30)
--- NOTE | 2020-04-06 12:21 | Palliative Care Progress Note ---
Date of Service April 06, 2020 Assessment & Plan (1) Palliative care encounter: Hospitalist residents spoke with the patients and discussed the possibility of him returning to the [place] with Hospice support. Patient has been on a Morphine gtt to this point. Discussed with hospitalists, and proceeded to wean off Morphine gtt and replace with PO coverage after taking consideration into total use of morphine dosing. Patient did feel febrile to touch today on my assessment. Currently, I feel patient is stable for transport to the [place] tomorrow 04/07. This, of course can change at any moment. He has even respirations, no signs of pain, no mottling. Case management arranging with [facility]. Palliative care will follow. (2) Pain: after SAH, due to moaning with care and her concerns about him having unrecognized pain, will start routine roxanol for baseline pain control. Continue IV morphine for breakthrough pain. Admission and Anticipated Discharge Date Admission Date: April 01, 2020 Subjective Lying in bed comfortably. Patient does not have agonal breathing. pt appears to be febrile to touch see a/p for further details Review of Systems Review of Systems: [place] Symptom Assessment Scale PainAD 1/3 Dyspnea by RDOS 0/3 Palliative Performance Scale 10% Physical Exam Constitutional: no acute distress Respiratory: normal respiratory effort; no labored breathing Cardiovascular: Extremities: no edema Neurologic: + obtunded PG Care Time/CCT Total # of Minutes Spent Total Time Spent with Patient: Total time spent is greater than 50% in coordination of care (as documented) at patient's floor/unit and/or counseling patient: 45 Coding Level of Care Code 76166 Subseq Hosp Care Lvl 3 Diagnoses Palliative care encounter Z51.5 Pain R52 Time Spent (min) 45 Time Spent Midlevel Total time spent 45 minutes with > 50% of that time spent assessing the patient, discussing goals of care and symptom management with IDT.
--- NOTE | 2020-04-06 14:46 | Hospitalist Progress Note ---
Date of Service April 06, 2020 Assessment & Plan Admission and Anticipated Discharge Date Admission Date: April 01, 2020 Patient is a 74 year old male with PMHx subarachnoid hemorrhage, dementia, BPH, HTN that presented to [facility] ED for AMS and stroke like symptoms, found to have a hemorrhagic stroke of his left temporoparietal lobe 7.3cm x 4.9cm with surrounding edema. COMFORT CARE MEASURES ONLY -Discussion with patients Arianne regarding patients poor prognosis. -Family agreeable to comfort measures only at this time and wish to withdraw care and only keep him comfortable. -Palliative Consulted -Contacted and notified patients with change from IV pain medication to oral in-order to transfer patient to the [place] allowing more family access -Goal of discharge tomorrow if pt. 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 This was also treated with BP management of Systolic <140. Dispo: Med/Surg Comfort care FEN: DC IVF, food per comfort DVT: Deferred, comfort Code: DNR/DNI Comfort Measures Supervising Physician Co-Signing Physician Notes Resident Physician Supervision Note: I independently interviewed and examined the patient and verified the suarez history and physical, reviewed labs and image studies, discussed the case with the resident Dr. Castillo and agree with the findings and care plan. Subjective Lying in bed comfortably. Patient does not have agonal breathing. Review of Systems Review of Systems: Unobtainable due to reduced consciousness Physical Exam Constitutional: + ill appearing and + altered mental status (responsive to painful stimuli) ENMT: external ear and nose normal, oropharynx normal Neck: normal visual inspection Respiratory: normal respiratory effort, lungs clear to auscultation Cardiovascular: RRR, no murmur, no edema Gastrointestinal (Abdomen): normal bowel sounds, soft, nontender, no hepatosplenomegaly Skin: no rashes, warm and dry Psychiatric: Orientation: + not alert and + not oriented x 3 Results & Data CBC Results Results Complete Blood Count Results: RBC 4.79 M/uL (4.7-6.1) 12/16/20 WBC 14.91 K/uL (4.8-10.8) H 04/01/20 Hgb 14.9 g/dL (14.0-18.0) 04/01/20 Hct 42.6 % (42-52) 04/01/20 Plt Count 259 K/uL (130-400) 04/01/20 Chemistry ([facility]) Results BMP Results: Sodium 140 mmol/L (136-145) 04/01/20 Potassium 3.6 mmol/L (3.5-5.1) 04/01/20 Chloride 107 mmol/L (98-107) 04/01/20 BUN 26 mg/dl (7-18) H 04/01/20 Creatinine 1.25 mg/dl (0.6-1.4) 04/01/20 Glucose 146 mg/dl (70-99) H 04/01/20 Resident Activity Tracking Resident Involvement: Resident Care Provided Care Provided: Adult [facility] Medicine
[2020-04-06] MEDS ORDERED: ACETAMINOPHEN 1000 MG/100 ML IV IV PRN (20:49)
[2020-04-07] MEDS: ATROPINE SULFATE 1% OP SOLN 5 ML BTL SL PRN (05:40)
--- NOTE | 2020-04-07 06:46 | Discharge Summary ---
Date of Service April 07, 2020 Admission HPI Per Admitting Provider Caveat: History Limited by - AMS/CVA. is present at bedside and provides hx. Michael Patrick is a 74 y/o male with past medical hx of nonoperable subarachnoid hemorrhage (10/2019), dementia, BPH, HTN, who presented to [facility] ED for AMS and Stroke like symptoms. notes that around 5:30pm tonight patient came out of bathroom and complained of a left sided headache. He then progressed to have mumbled speech and was acting more confused from baseline, wasn't following commands, unintelligable speech. is unaware of any head trauma. He does have a hx of a nonoperable subarachnoid hemorrhage treated at [facility] in October [place]. reports his cognitive function has been declining since and that she has to help Michael with most ADLs. She reports that about one week ago coming to ED because of increased agitation at home. In the ED here, he was found to have parenchymal hemorrhage centered in the left temporoparietal lobe size of 7.3cm with surrounding edema; and small amounts surrounding subarachnoid hemorrhage; local mass-effect; mass effect on left lateral ventricle; approx 2mm of left to right midline shift. ED provider contacted neurosurgeons at [facility] and [facility] for transfer, there were no available ICU beds and [facility] neurosurgeon noted that this is an inoperable condition with only recommendations for BP management. at bedside noted that Michael wouldn't want any resuscitation or intubation for cardiac arrest. She wanted to discuss with children prior to any official comfort care measures but agreed to keep Michael comfortable. He was given Morphine 4mg IV for leg cramps that she noted gives him pain, although he wasn't able to endorse any intelligible speech noting pain. He was trying to get out of bed, not following commands, and was given Dilaudid 1mg IV (as noted he was still in pain s/p Morphine 4mg IV) and Ativan 1gm IV, both which made Michael more comfortable. He also has been getting Hydralazine IV for BP control. is requesting Neurology consult. She is aware of grave condition and most likely un-survivable illness. Admission Exam Per Admitting Provider Constitutional: WD/WN, vitals as above + ill appearing, + altered mental status and comfortable Caveat: Limited by CVA/AMS Eyes: PERRL, conjunctivae normal, anicteric sclerae ENMT: Nose: no external nose abnormality Mouth: no lip abnormality Neck: trachea midline Respiratory: normal respiratory effort, lungs clear to auscultation Cardiovascular: Rate/Rhythm: regular rhythm and + tachycardic Gastrointestinal (Abdomen): Inspection/Auscultation: + visible herniation (umbilical) Percussion/Palpation: abdomen soft Musculoskeletal: Head/Neck/Chest: normocephalic and head atraumatic Skin: no rashes, warm and dry Neurologic: + confused Speech / Cognition: + abnormal speech does not respond to simtuli or open eyes; does not open eyes but mumbles and tried to get out of bed prior to sedation. Psychiatric: unable to assess Principal Diagnosis SAH IPH HTN Dementia Discharge Exam Constitutional + ill appearing and + altered mental status (responsive to painful stimuli) ENMT external ear and nose normal, oropharynx normal Neck normal visual inspection Respiratory normal respiratory effort, lungs clear to auscultation Cardiovascular RRR, no murmur, no edema Gastrointestinal (Abdomen) normal bowel sounds, soft, nontender, no hepatosplenomegaly Skin no rashes, warm and dry Psychiatric Orientation: + not alert and + not oriented x 3 Discharge Data Allergies Allergy/AdvReac Type Severity Reaction Status Date / Time terazosin [From Hytrin] Allergy Unknown Unknown Verified 04/01/20 00:37 Consultations 03/31/20 23:48 ED Decision to Admit Stat 04/01/20 02:10 Consult Case Management - Discharge Planning Routine Consult Palliative Care Routine 04/01/20 10:29 Consult Case Management - Discharge Planning Routine Ordered Studies 03/31/20 22:25 CT head/brain wo con Urgent Hospital Course (1) Intracranial hemorrhage: Patient is a 74-year-old male with PMHx subarachnoid hemorrhage, dementia, BPH, HTN that presented to [facility] ED for AMS and stroke like symptoms, found to have a hemorrhagic stroke of his left temporoparietal lobe 7.3cm x 4.9cm with surrounding edema. COMFORT CARE MEASURES ONLY -Discussion with patients Arianne regarding patients poor prognosis. 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 This was also treated with BP management. FEN: food per comfort Code: DNR/DNI Comfort Measures Total Time Total Time Spent Total Time Spent (In Minutes): see attending attestation Discharge Plan Discharge Items Patient Disposition: Hospice - Medical Facility Reason For Visit: AMS/STROKE SYMPTOMS Discharge Diagnosis: Intracranial hemorrhage Activity: Per Instructions section Non-emergency contact: Primary Care Provider and Pain Management Call non-emergency contact if: you have any medication questions Follow-up/Referrals: Marley Ball DO [Primary Care Provider] - Diet: Regular Addtl Attending Provider Instructions: Patient is a 74-year-old male with PMHx subarachnoid hemorrhage, dementia, BPH, HTN that presented to [facility] ED for AMS and stroke like symptoms, found to have a hemorrhagic stroke of his left temporoparietal lobe 7.3cm x 4.9cm with surrounding edema. COMFORT CARE MEASURES ONLY -Discussion with patients Arianne regarding patients poor prognosis. 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 This was also treated with BP management. FEN: food per comfort Code: DNR/DNI Comfort Measures Pending Studies at Discharge: No Stand-Alone Forms: My [facility] Skilled Items Patient informed of condition?: Yes DNR: Yes Discharge Level of Care: Acute rehab Communicable Disease: No Discharge Prognosis: Stable Lines: None Urinary Catheter: No Medications and DC Order Prescriptions: New oxycodone 20 mg/mL concentrate 5 mg PO Q1H PRN (Reason: pain) Qty: 30 RF: 0 morphine concentrate 100 mg/5 mL (20 mg/mL) solution 5 mg PO Q4H PRN (Reason: pain) Qty: 30 RF: 0 Discontinued finasteride 5 mg tablet 5 mg PO QAM RF: 0 donepezil 5 mg tablet 5 mg PO QPM RF: 0 doxazosin [Cardura] 8 mg tablet 8 mg PO QAM RF: 0 potassium chloride [Klor-Con M20] 20 mEq tablet,ER particles/crystals 40 meq PO QAM RF: 0 potassium chloride [Klor-Con M20] 20 mEq tablet,ER particles/crystals 20 meq PO QPM RF: 0 indapamide 1.25 mg tablet 1.25 mg PO QPM RF: 0 losartan [Cozaar] 100 mg tablet 100 mg PO QAM RF: 0 Discharge Orders: Discharge Order (Routine); Ordered 04/07/20 Ordered By: Osmar Simon Admission Data Admit Date/Time: 04/01/20 01:41 Attending Provider: Ibeth Barrera Admit Provider: Andrew Mckoy Primary Care Provider: Marley Ball Other Providers: Vanessa Waller ; Nuvia Piper Other Interventions: Discharge Summary Assessment (RN) Last Done: 04/07/20 11:59 Supervising Physician Co-Signing Physician Notes Resident Physician Supervision Note: I independently interviewed and examined the patient and verified the suarez history and physical, reviewed labs and image studies, discussed the case with the resident Dr. Castillo and agree with the findings and care plan. Resident Activity Tracking Resident Involvement: Resident Care Provided Care Provided: Adult [facility] Medicine CBC Results Results Complete Blood Count Results: RBC 4.79 M/uL (4.7-6.1) 04/01/20 WBC 14.91 K/uL (4.8-10.8) H 04/01/20 Hgb 14.9 g/dL (14.0-18.0) 04/01/20 Hct 42.6 % (42-52) 04/01/20 Plt Count 259 K/uL (130-400) 04/01/20 Chemistry (BMP) Results BMP Results: Sodium 140 mmol/L (136-145) 04/01/20 Potassium 3.6 mmol/L (3.5-5.1) 04/01/20 Chloride 107 mmol/L (98-107) 04/01/20 BUN 26 mg/dl (7-18) H 04/01/20 Creatinine 1.25 mg/dl (0.6-1.4) 04/01/20 Glucose 146 mg/dl (70-99) H 04/01/20
[2020-04-07] MEDS: CHECK SCOPOLAMINE PATCH PLACEMENT SCH (07:55)
[2020-04-07] MEDS: SCOPOLAMINE 1 MG TDSY TD SCH (07:56)
[2020-04-07] MEDS ORDERED: SCOPOLAMINE 1 MG TDSY TD SCH (08:59)
--- NOTE | 2020-04-07 10:39 | Communication Note ---
Date of Service: April 07, 2020 cross coverage - informed that pharmacy did not have liquid oxycodone, nor would they for several days. did have morphine sulfate 20mg/ml concentrate -- asked to cancel oxycodone order, sent order for 5mg (0.25ml) morphine instead
== END 2020-04-07 14:36 | disposition hospice, home (50) | DRG 64 ==
LOC: ED 22:06 → SUATTDRO 04-01 01:41 → 2S 04-01 01:41 → 2W 04-01 10:33